=== PATIENT | male | born 1955 | race Caucasian/White ===

== ENCOUNTER 2018-10-10 13:10 | Emergency (ER) | payer OTHER, MEDICARE, SELFPAY ==
[2018-10-10 13:11] VITALS: BP 129/86; PULSE 60; RESP 18; TEMP 36.4; O2SAT 96; BMI 25.1
--- NOTE | 2018-10-10 13:25 | RAD_ITS ---
STUDY: X-RAY - UNILATERAL RIBS ( LEFT ) WITH CHEST REASON FOR EXAM: Male, 63 years old. Left rib pain following a fall. TECHNIQUE - RIBS: 4 view(s) of the ribs. TECHNIQUE - CHEST: Single PA view of the chest. COMPARISON: None. FINDINGS - RIBS: Nondisplaced fractures along the posterior lateral aspect of the left seventh and eighth ribs. FINDINGS - CHEST: Mild increased markings at the left lung base suggest some left basilar atelectasis. There is no demonstrated pleural abnormality. Normal size heart. Normal mediastinum and lindsey. Normal visualized pulmonary arteries. Normal visualized aortic arch and descending thoracic aorta. Normal visualized thoracic spine. Nondisplaced fractures of the left seventh and eighth ribs posterolaterally. There is no demonstrated abnormality of the visualized soft tissue structures of the upper abdomen. RAD/Ribs Uni Min 3V w/PA Chest IMPRESSION: RIBS: Nondisplaced left seventh and eighth ribs fractures posterolaterally. CHEST: Mild increased markings at the left lung base suggestive of atelectasis. Electronically Signed: Sebastian Che MD at 14:14 EST , Service support ,
[2018-10-10 14:17] VITALS: BP 137/80
--- NOTE | 2018-10-10 14:55 | NURSING ---
[facility] CALLED FOR TEST PER COMPANY REQUEST. PT AWARE
[2018-10-10] MEDS: oxyCODONE 5 MG Tablet 10 MG PO (16:02)
[2018-10-10 16:05] VITALS: BP 154/84
--- NOTE | 2018-10-10 16:24 | ED.DCSUM_ITS ---
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 He was unloading his truck when he slipped on ice and fell, landing on his left ribs. He is complaining of pain to the left ribs. He denies striking his head or loss of consciousness. He does have a history of COPD. Physical Examination: Vital signs unremarkable. Patient sitting upright in bed. He appears uncomfortable but he is in no acute distress. He is speaking full sentences. Head and neck examination reveals no sign of trauma. No C-spine tenderness. Heart is regular rate and rhythm. Lungs sounds with mild expiratory wheezes throughout. He does have reproducible tenderness in the left posterior ribs. No crepitus. Abdomen is soft nontender. Test Results: Left rib series with chest x-ray reveals nondisplaced fractures of seventh and eighth ribs. No pneumothorax. Emergency Department Course and Treatment: Patient initially declined anything for pain, but after drug screen he did agree to pain medication. He is given a couple tabs of oxycodone. Work restrictions have been written. Patient is discharged. Treatment Plan: [] Disposition: Discharge Impression: Left rib fractures This note was generated with [employer] dictation software. It may contain incorrect words, spelling, and punctuation that were not noted in review of the chart prior to signing ED Disposition - Plan for ED Patient: Disposition: Home or Assisted Living Instructions: ED Fx Rib Prescriptions: Oxycodone HCl/Acetaminophen [Percocet 5/325] 1 tablet PO Q6H PRN PRN 5 Days #20 tablet PRN Reason: Pain Referrals: [facility] [GROUP OF PHYSICIANS] -
[2018-10-10 16:33] VITALS: BP 154/84; PULSE 72; RESP 18
== END 2018-10-10 16:34 | disposition home or self-care (01) ==
PROVIDERS: Emergency Provider Emergency Medicine
DX: S22.42XA Multiple fractures of ribs, left side, initial encounter for closed fracture (principal); Z87.891 Personal history of nicotine dependence; W00.0XXA Fall on same level due to ice and snow, initial encounter; Y93.89 Activity, other specified; Y92.89 Other specified places as the place of occurrence of the external cause; Y99.0 Civilian activity done for income or pay
CPT/HCPCS: 71101; 99284